=== PATIENT | male | born 1950 | race Caucasian/White ===

== ENCOUNTER 2017-03-26 13:40 | Outpatient (CLI) | payer OTHER ==
[2017-03-26 18:12] LABS: PT - PROTHROMBIN TIME 11.5 secs (9.9-12.6)
[2017-03-26 18:22] LABS: BILIRUBIN,URINE NEGATIVE (NEGATIVE)
[2017-03-26 18:24] LABS: PARTIAL THROMBOPLASTIN TIME 25.8 secs (24.9-33.3)
== END 2017-03-26 13:41 | disposition home or self-care (01) ==
LOC: LAB.F 13:40
PROVIDERS: ATTEND Emergency Medicine
DX: Z01.812 Encounter for preprocedural laboratory examination (principal)
CPT/HCPCS: 36415; 81003; 85610; 85730

== ENCOUNTER 2019-05-23 12:13 | Outpatient (CLI) | payer MEDICARE ==
--- NOTE | 2019-05-24 15:38 | XRAY Report ---
Reason: shortness of breath Procedure Date: 05/23/2019 Accession Number: [id number] / [id number] Procedure: XR - Chest 2 View X-Ray CPT Code: 33158 Final Report FULL RESULT: EXAM: CHEST RADIOGRAPHY EXAM DATE: 05/23/2019 12:35 PM. CLINICAL HISTORY: Shortness of breath. COMPARISON: None. TECHNIQUE: 2 views. FINDINGS: Lungs/Pleura: No focal opacities evident. No pleural effusion. No pneumothorax. Low lung volumes. Mediastinum: Heart and mediastinal contours are unremarkable. Aortic calcifications are present. Other: Mild thoracic kyphosis. Moderate leftward convex upper lumbar scoliosis. Multilevel thoracic degeneration. No acute osseous abnormality evident. IMPRESSION: No convincing acute cardiopulmonary abnormality. RADIA
== END 2019-05-23 12:14 | disposition home or self-care (01) ==
LOC: DI 12:13
PROVIDERS: ATTEND Emergency Medicine
DX: R06.02 Shortness of breath (principal)
CPT/HCPCS: 71046

== ENCOUNTER 2019-06-07 13:49 | Outpatient (CLI) | payer MEDICARE | END 2019-06-07 23:59 | disposition critical access hospital (66) | LOC: EMS 13:49 | PROVIDERS: ATTEND Surgery | DX: R42 Dizziness and giddiness (principal); R11.2 Nausea with vomiting, unspecified | CPT/HCPCS: A0425; A0427 ==

== ENCOUNTER 2019-06-07 14:19 | Emergency (ER) | payer MEDICARE ==
--- NOTE | 2019-06-07 14:40 | ED Physician Documentation ---
History of Present Illness - Stated complaint Stated Complaint: VERTIGO - Chief complaint Chief Complaint: Neuro - History obtained from History obtained from: Patient - History of Present Illness Timing: Prior to arrival - Additonal information Additional information: This is a 69-year-old man who was cleaning out his pantry today when he suddenly felt very dizzy like the room was spinning around him so he went and sat down in his easy chair and he thought he was going to throw up but he knew better than to stand up so he crawled into the bathroom to the toilet and vomited and then laid down on the ground. His came in and found him in the bathroom on the ground. He crawled back out to the chair but they called the ambulance. This dizziness feels like when he had his stroke several years ago. He took 2 baby aspirin and additional to the 2 baby aspirin he takes daily at the onset of his symptoms. He denies any headache. He feels very tired and "keeps passing out". He has recently been sick his had a cold and now he is developed some nasal congestion sore throat coughing but no fever. He has not taken any medications for his symptoms. He is not diabetic. He does take Plavix. He did not pass out today did not fall and hit his head. He has stents in his neck and his lower extremities. Review of Systems Constitutional: denies: Fever Eyes: denies: Decreased vision Ears: denies: Ear pain Nose: reports: Rhinorrhea / runny nose, Congestion Throat: reports: Sore throat Cardiac: denies: Chest pain / pressure, Palpitations Respiratory: reports: Cough. denies: Dyspnea GI: reports: Nausea, Vomiting : denies: Dysuria Musculoskeletal: reports: Back pain (Chronic underwent laminectomy a year ago) Neurologic: reports: Generalized weakness, Near syncope. denies: Focal weakness, Numbness, Syncope, Confused, Headache, Head injury, LOC Endocrine: reports: Other (He is not diabetic) PD PAST MEDICAL HISTORY - Past Medical History Past Medical History: Yes Cardiovascular: Hypertension, High cholesterol Neuro: CVA - Past Surgical History Past Surgical History: Yes General: Hiatal hernia repair - Allergies Allergies/Adverse Reactions: Allergies Allergy/AdvReac Type Severity Reaction Status Date / Time Sulfa (Sulfonamide Allergy Hallucinati Verified 06/07/19 14:21 Antibiotics) ons - Social History Does the pt smoke?: No Smoking Status: Former smoker Does the pt drink ETOH?: No Does the pt have substance abuse?: No - Immunizations Immunizations are current?: Yes PD ED PE NORMAL - Vitals Vital signs reviewed: Yes - General General: Alert and oriented X 3, No acute distress, Well developed/nourished, Other (Patient keeps drifting off to sleep while I am talking to him but arouses with the light tapping and is not confused.) - HEENT HEENT: Atraumatic, PERRL, EOMI, Moist mucous membranes, Pharynx benign - Neck Neck: Supple, no meningeal sign, No adenopathy, No bruit - Cardiac Cardiac: RRR, No murmur - Respiratory Respiratory: No respiratory distress, Clear bilaterally - Abdomen Abdomen: Normal bowel sounds, Soft, Non tender - Back Back: No CVA TTP - Derm Derm: Normal color, Warm and dry, No rash - Extremities Extremities: No edema - Neuro Neuro: Alert and oriented X 3, computerized mill recorder 2-12 intact, No motor deficit, No sensory deficit, Normal speech - Psych Psych: Normal mood, Normal affect Results - Vitals Vitals: Vital Signs - 24 hr 06/07/19 06/07/19 06/07/19 14:21 14:41 16:52 Temperature 36.5 C 36.0 C L Heart Rate 72 67 77 Respiratory 14 15 15 Rate Blood Pressure 165/72 H 157/63 H 165/70 H O2 Saturation 98 95 96 Oxygen O2 Source Room air - EKG (time done) 1435 Rate: Rate (enter#) (65) Rhythm: NSR Intervals: No: Wide QRS Ischemia: Normal ST segments Compare to prior EKG: Old EKG unavailable - Labs Labs: Laboratory Tests 06/07/19 06/07/19 06/07/19 15:15 15:15 15:15 WBC 6.0 RBC 3.93 L Hgb 11.6 L Hct 35.7 L MCV 90.8 MCH 29.5 MCHC 32.5 RDW 13.4 Plt Count 182 MPV 10.1 Neut # (Auto) 5.0 Lymph # (Auto) 0.6 L [place] # (Auto) 0.3 Eos # (Auto) 0.1 Baso # (Auto) 0.0 Absolute Nucleated RBC 0.00 Nucleated RBC % 0.0 PT 12.2 INR 1.1 Sodium 138 Potassium 4.0 Chloride 108 Carbon Dioxide 23 Anion Gap 7.0 BUN 19 Creatinine 1.1 Estimated GFR (MDRD) 66 L Glucose 126 H Calcium 8.7 Total Bilirubin 0.7 AST 27 ALT 28 Alkaline Phosphatase 60 Troponin I High Sens Total Protein 6.6 L Albumin 3.8 Globulin 2.8 Albumin/Globulin Ratio 1.4 Lipase 26 Urine Color Urine Clarity Urine pH Ur Specific [place] Urine Protein Urine Glucose (UA) Urine Ketones Urine Occult Blood Urine Nitrite Urine Bilirubin Urine Urobilinogen Ur Leukocyte Esterase Ur Microscopic Review Urine Culture Comments 06/07/19 06/07/19 15:15 16:43 WBC RBC Hgb Hct MCV MCH MCHC RDW Plt Count MPV Neut # (Auto) Lymph # (Auto) [place] # (Auto) Eos # (Auto) Baso # (Auto) Absolute Nucleated RBC Nucleated RBC % PT INR Sodium Potassium Chloride Carbon Dioxide Anion Gap BUN Creatinine Estimated GFR (MDRD) Glucose Calcium Total Bilirubin AST ALT Alkaline Phosphatase Troponin I High Sens 7.6 Total Protein Albumin Globulin Albumin/Globulin Ratio Lipase Urine Color YELLOW Urine Clarity CLEAR Urine pH 6.0 Ur Specific [place] 1.020 Urine Protein NEGATIVE Urine Glucose (UA) NEGATIVE Urine Ketones NEGATIVE Urine Occult Blood NEGATIVE Urine Nitrite NEGATIVE Urine Bilirubin NEGATIVE Urine Urobilinogen 0.2 (NORMAL) Ur Leukocyte Esterase NEGATIVE Ur Microscopic Review NOT INDICATED Urine Culture Comments NOT INDICATED PD MEDICAL DECISION MAKING - ED course Complexity details: reviewed results, re-evaluated patient, d/w patient, d/w family ED course: Labs are normal. His chest x-ray is clear without pneumonia. He was quite sleepy but he got Zofran in route here. He had no further episodes of dizziness. He was able to up and ambulate without any ataxia or dizziness. He felt fine. CT did not show any evidence of acute stroke. He will be discharged home with outpatient follow-up or return if his symptoms are worsening. Departure - Departure Disposition: 01 Home, Self Care Clinical Impression: Dizziness Condition: Good Instructions: ED Vertigo Unspecified Follow-Up: Edmar Overton MD [Primary Care Provider] - Comments: Home and rest. If you experience further episodes of dizziness interfering with your ability to get up or you have continued vomiting from them or headache you should return for reevaluation.
[2019-06-07] MEDS ORDERED: SODIUM CHLORIDE 0.9% 500 ML IV ONE (15:00)
[2019-06-07 15:26] LABS: INR 1.1 (0.8-1.2); PT - PROTHROMBIN TIME 12.2 secs (9.9-12.6)
[2019-06-07 15:27] LABS: BASOPHILS % (AUTO) 0.5 %; EOSINOPHILS # (AUTO) 0.1 10^3/uL (0.0-0.7); EOSINOPHILS % (AUTO) 1.3 %; HGB - HEMOGLOBIN 11.6 g/dL (14.0-18.0); LYMPHOCYTES # (AUTO) 0.6 10^3/uL (1.5-3.5); LYMPHOCYTES % (AUTO) 10.3 %; MEAN CORPUSCULAR HEMOGLOBIN 29.5 pg (27.0-31.0); MEAN CORPUSCULAR HGB CONC 32.5 g/dL (32.0-36.0); MEAN CORPUSCULAR VOLUME 90.8 fL (80.0-94.0); MEAN PLATELET VOLUME 10.1 fL (7.4-11.4); MONOCYTES # (AUTO) 0.3 10^3/uL (0.0-1.0); MONOCYTES % (AUTO) 4.7 %; NEUTROPHILS % (AUTO) 82.7 %; PLT - PLATELET COUNT 182 10^3/uL (130-450); RED BLOOD COUNT 3.93 10^6/uL (4.70-6.10); RED CELL DISTRIBUTION WIDTH 13.4 % (12.0-15.0)
[2019-06-07 15:34] LABS: ALBUMIN 3.8 g/dL (3.2-5.5); ALBUMIN/GLOBULIN RATIO 1.4 (1.0-2.2); BILIRUBIN,TOTAL 0.7 mg/dL (0.2-1.0); CALCIUM 8.7 mg/dL (8.5-10.3); CREATININE 1.1 mg/dL (0.6-1.2); TOTAL PROTEIN 6.6 g/dL (6.7-8.2)
--- NOTE | 2019-06-07 15:50 | XRAY Report ---
Reason: chest pain Procedure Date: 06/07/2019 Accession Number: [id number] / [id number] Procedure: XR - Chest 1 View X-Ray CPT Code: 26456 Final Report FULL RESULT: EXAM: CHEST RADIOGRAPHY, PORTABLE 1 VIEW EXAM DATE: 06/07/2019 03:31 PM. CLINICAL HISTORY: Chest pain in a 69-year-old male, with nausea, vomiting and dizziness. COMPARISON: CHEST 2 VIEW 05/23/2019 12:28 PM. TECHNIQUE: 1505 hours, AP portable view. FINDINGS: Technically limited study secondary to patient body habitus. Lungs/Pleura: No focal opacities evident. No pleural effusion. No pneumothorax. Mildly suboptimal inspiratory effort. Mediastinum: Heart size upper normal, without adenopathy or pulmonary vascular congestion. Other: Trachea is midline. Osseous structures are unremarkable. IMPRESSION: Technically limited study secondary to patient body habitus. No pneumonia, CHF or other acute process. [facility]
--- NOTE | 2019-06-07 15:59 | CT Report ---
Reason: vertigo Procedure Date: 06/07/2019 Accession Number: [id number] / [id number] Procedure: CT - HEAD WO CPT Code: Final Report FULL RESULT: EXAM: CT HEAD EXAM DATE: 06/07/2019 03:27 PM. CLINICAL HISTORY: Vertigo. COMPARISON: None. TECHNIQUE: Multiaxial CT images were obtained from the foramen magnum to the vertex. Reformats: Sagittal and coronal. IV contrast: None. In accordance with CT protocol optimization, one or more of the following dose reduction techniques were utilized for this exam: automated exposure control, adjustment of mA and/or KV based on patient size, or use of iterative reconstructive technique. FINDINGS: Parenchyma: No intraparenchymal hemorrhage. No evidence of mass, midline shift, or CT findings of acute infarction. Periventricular white matter hypodensity likely represents small vessel ischemic disease. Ngo-white differentiation is distinct. Extraaxial Spaces: Normal for age. No subdural or epidural collections identified. Ventricles: Normal in size and position. Sinuses and Orbits: Imaged paranasal sinuses, orbits, and mastoids show no significant abnormality. Bones: No evidence of fracture or calvarial defect. Other: None. IMPRESSION: No acute intracranial CT abnormality. [facility]
[2019-06-07 16:49] LABS: BILIRUBIN,URINE NEGATIVE (NEGATIVE); GLUCOSE, URINE (UA) NEGATIVE (NEGATIVE); KETONES,URINE (UA) NEGATIVE (NEGATIVE); LEUKOCYTE ESTERASE, URINE NEGATIVE (NEGATIVE); NITRITE,URINE NEGATIVE (NEGATIVE); OCCULT BLOOD,URINE NEGATIVE (NEGATIVE); PROTEIN,URINE NEGATIVE (NEGATIVE); UROBILINOGEN,URINE 0.2 (NORMAL) E.U./dL (NORMAL)
[2019-06-07 16:52] VITALS: BP 165/70
[2019-06-07 16:55] LABS: CLARITY,URINE CLEAR (CLEAR)
== END 2019-06-07 17:45 | disposition home or self-care (01) ==
LOC: EDUNIT# → ED 14:19
DX: R42 Dizziness and giddiness (principal); I10 Essential (primary) hypertension; Z87.891 Personal history of nicotine dependence; Z79.02 Long term (current) use of antithrombotics/antiplatelets
CPT/HCPCS: 36415; 70450; 71045; 80053; 81001; 81003; 83690; 84484; 85025; 85610; 87086; 93005; 99284